=== PATIENT | male | born 1955 | race Caucasian/White ===

== ENCOUNTER 2016-10-04 16:35 | Emergency (ER) | payer SELFPAY ==
[~2016-10-04] VITALS: Ht 180.3 cm; Wt 82.0 kg
[~2016-10-04 16:35] MED LIST: B12-1CHW CHEW; DILA100C PO; LYSI1000 PO; PERC10TA27 PO
[2016-10-04 16:53] VITALS: BP 147/83; PULSE 79; RESP 19; TEMP 98.9; O2SAT 96
[2016-10-04] MEDS ORDERED: PRIL20CA9 PO (17:01)
[2016-10-04] MEDS ORDERED: ZANT150T2 PO (17:01)
--- NOTE | 2016-10-04 17:05 | PD ---
HPI Chief Complaint: Abdominal Pain Time Seen by Provider: 17:05 Travel History International Travel<30 days: No Contact w/Intl Traveler<30days: No Traveled to known affect area: No History of Present Illness HPI 61 year old male with PMH of depression, substance abuse, kidney stones, diverticulitis presents to the ED for evaluation of 1 week history of LLQ pain, nausea, vomiting. Patient endorses chills, has not measured a temperature at home. He endorses a single episode of bilious vomiting today. He endorses early satiety. Denies anorexia, diarrhea, constipation, melena, hematochezia. States this pain is unlike previous episodes of diverticulitis or kidney stones. No treatment attempted at home. Patient has never has a colonoscopy or endoscopy. PFSH Past Medical History Blood Disorders: No Anxiety: No Depression: No Cancer: No Cardiovascular Problems: No Chemotherapy: No Cerebrovascular Accident: No Diabetes: No Diminished Hearing: No Diverticulitis: Yes Endocrine: No Gastrointestinal Disorders: Yes GERD: Yes Genitourinary: Yes Immune Disorder: No Inguinal Hernia: Yes Implanted Vascular Access Dvce: No Kidney Stones: Yes Musculoskeletal: No Neurologic: Yes Psychiatric: No Reproductive: No Respiratory: No Immunizations Current: No Migraines: Yes Radiation Therapy: No Renal Failure: No Seizures: Yes (non compliant) Shingles: Yes (2014) Sickle Cell Disease: No Thyroid Disease: No Past Surgical History Abdominal Surgery: Yes (RIGHT INGUINAL HERNIA SX) AICD: No Arteriovenous Shunt: No Cardiac Surgery: No Ear Surgery: No Endocrine Surgery: No Eye Surgery: No Genitourinary Surgery: Yes (LITHOTRIPSY 2009) Gynecologic Surgery: No Insulin Pump: No Joint Replacement: No Oral Surgery: No Pacemaker: No Thoracic Surgery: No Tonsillectomy: Yes Other Surgery: Yes (right leg fracture, lithotripsy) Social History Alcohol Use: No Tobacco Use: No Substance Use: Yes (marijuana, 3 days ago last use) Allergies-Medications (Allergen,Severity, Reaction): Coded Allergies: Ketorolac (Verified Allergy, Severe, NUTTY, 12/05/14) Stadol (Verified Allergy, Severe, BLEEDING FROM KIDNEYS, 12/05/14) Reported Meds & Prescriptions Reported Meds & Active Scripts Active Percocet (Oxycodone-Acetaminophen) 7.5-325 mg Tab 1 Tab PO Q6H PRN Cipro (Ciprofloxacin HCl) 500 Mg Tab 500 Mg PO BID 10 Days Zofran Odt (Ondansetron Odt) 4 Mg Tab 4 Mg SL Q12HR PRN Reported Zantac (Ranitidine HCl) 150 Mg Tab 150 Mg PO BID Prilosec (Omeprazole) 20 Mg Cap 20 PO DAILY Review of Systems Except as stated in HPI: all other systems reviewed are Neg Physical Exam Narrative GENERAL: Well-nourished, well-developed nontoxic appearing white male in no acute distress. Lying on the stretcher, moaning as I enter the room. SKIN: Focused skin assessment warm/dry. HEAD: Normocephalic. EYES: No scleral icterus. No injection or drainage. NECK: Supple, trachea midline. No JVD or lymphadenopathy. CARDIOVASCULAR: Regular rate and rhythm without murmurs, gallops, or rubs. 2+ DP and radial pulses bilaterally. RESPIRATORY: Breath sounds clear and equal bilaterally. No accessory muscle use. GASTROINTESTINAL: Abdomen soft, nondistended, no palpable masses.++ Left lower quadrant tenderness. Active bowel sounds. MUSCULOSKELETAL: No cyanosis, or edema. BACK: Nontender without obvious deformity. ++ Left-sided CVA tenderness. Data Data Last Documented VS Vital Signs Date Time Temp Pulse Resp B/P Pulse Ox O2 Delivery O2 Flow Rate FiO2 10/04/16 20:24 87 158/88 98 10/04/16 18:32 18 10/04/16 18:30 Room Air 10/04/16 16:53 98.9 Orders Complete Blood Count With Diff (10/04/16 17:17) Comprehensive Metabolic Panel (10/04/16 17:17) Lipase (10/04/16 17:17) Lactic Acid (10/04/16 17:17) Prothrombin Time / Inr (Pt) (10/04/16 17:17) Act Partial Throm Time (Ptt) (10/04/16 17:17) Urinalysis - C+S If Indicated (10/04/16 17:17) Iv Access Insert/Monitor (10/04/16 17:17) Ecg Monitoring (10/04/16 17:17) Oximetry (10/04/16 17:17) Ondansetron Inj (Zofran Inj) (10/04/16 17:30) Sodium Chlor 0.9% 1000 Ml Inj (Ns 1000 M (10/04/16 17:17) Sodium Chloride 0.9% Flush (Ns Flush) (10/04/16 17:30) Hydromorphone Pf Inj (Dilaudid Pf Inj) (10/04/16 17:30) Ct Abd/Pel W/O Iv Contrast (10/04/16 ) Morphine Inj (Morphine Inj) (10/04/16 19:30) Sodium Chlor 0.9% 1000 Ml Inj (Ns 1000 M (10/04/16 19:30) Mandatory Outpatient Referral (10/04/16 19:43) Labs Laboratory Tests Test 10/04/16 10/04/16 17:20 18:25 White Blood Count 15.4 TH/MM3 Red Blood Count 5.54 MIL/MM3 Hemoglobin 17.1 GM/DL Hematocrit 50.0 % Mean Corpuscular Volume 90.2 FL Mean Corpuscular Hemoglobin 30.9 PG Mean Corpuscular Hemoglobin 34.2 % Concent Red Cell Distribution Width 14.2 % Platelet Count 268 TH/MM3 Mean Platelet Volume 7.0 FL Neutrophils (%) (Auto) 71.6 % Lymphocytes (%) (Auto) 15.9 % Monocytes (%) (Auto) 12.1 % Eosinophils (%) (Auto) 0.0 % Basophils (%) (Auto) 0.4 % Neutrophils # (Auto) 11.0 TH/MM3 Lymphocytes # (Auto) 2.4 TH/MM3 Monocytes # (Auto) 1.9 TH/MM3 Eosinophils # (Auto) 0.0 TH/MM3 Basophils # (Auto) 0.1 TH/MM3 CBC Comment DIFF FINAL Differential Comment Prothrombin Time 11.0 SEC Prothromb Time International 1.0 RATIO Ratio Activated Partial 22.3 SEC Thromboplast Time Sodium Level 134 MEQ/L Potassium Level 3.6 MEQ/L Chloride Level 100 MEQ/L Carbon Dioxide Level 23.0 MEQ/L Anion Gap 11 MEQ/L Blood Urea Nitrogen 21 MG/DL Creatinine 0.91 MG/DL Estimat Glomerular Filtration 85 ML/MIN Rate Random Glucose 117 MG/DL Lactic Acid Level 1.4 mmol/L Calcium Level 9.3 MG/DL Total Bilirubin 1.3 MG/DL Aspartate Amino Transf 14 U/L (AST/SGOT) Alanine Aminotransferase 11 U/L (ALT/SGPT) Alkaline Phosphatase 50 U/L Total Protein 8.1 GM/DL Albumin 4.2 GM/DL Lipase 192 U/L Urine Color LIGHT-ORANGE Urine Turbidity CLEAR Urine pH 5.5 Urine Specific [place] 1.050 Urine Protein 30 mg/dL Urine Glucose (UA) TRACE mg/dL Urine Ketones 40 mg/dL Urine Occult Blood NEG Urine Nitrite NEG Urine Bilirubin NEG Urine Urobilinogen 2.0 MG/DL Urine Leukocyte Esterase NEG Urine RBC 1 /hpf Urine WBC 4 /hpf Urine Mucus MANY /lpf Microscopic Urinalysis Comment CULT NOT INDICATED MDM Medical Decision Making Medical Screen Exam Complete: Yes Emergency Medical Condition: Yes Medical Record Reviewed: Yes Differential Diagnosis Diverticulitis versus nephroureterolithiasis versus pyelonephritis versus bowel obstruction versus pancreatitis versus colitis versus gastroenteritis versus other Narrative Course 61 year old male with PMH of depression, substance abuse, kidney stones, diverticulitis presents to the ED for evaluation of 1 week history of LLQ pain, nausea, vomiting. Patient endorses chills, has not measured a temperature at home. He endorses a single episode of bilious vomiting today. He endorses early satiety. Denies anorexia, diarrhea, constipation, melena, hematochezia. States this pain is unlike previous episodes of diverticulitis or kidney stones. Patient has never has a colonoscopy or endoscopy. Vitals reviewed. Physical exam reveals a nontoxic appearing white male in no acute distress. Abdomen mildly TTP in the LLQ. + left CVA TTP, otherwise unremarkable. IV was established. Placement was placed on continuous monitoring. He was administered half milligram Dilaudid, 4 mg Zofran and 1 L normal saline bolus IV. CBC: WBC 15.4, 71.6% neutrophils. INR: 1.0. CMP: BUN 21, Cr 2.1. Bilirubin 1.3 Lactic acid: 1.4 UA: No culture indicated. CT abdomen and pelvis: No change from CT of 10/03/15. There are renal stones and mild dilatation of the left collecting system. Densely calcified gallbladder. Large hiatal hernia. During the course of evaluation the patient became belligerent and abusive to the staff. He is repeatedly yelling out for pain medication. He was administered 6mg morphine and a 2nd fluid bolus. The source of the patient's left lower quadrant abdominal pain is unclear. Review of the record reveals similar pain complaint in September of last year. At this point I think treating for an early colitis and outpatient follow-up with the shop mechanic is reasonable. I discussed results of the workup with the patient. I discussed the symptoms of hiatal hernia. I prescribed a short course of Cipro, pain medications and Zofran. I informed the patient of the mandatory outpatient referral process and encouraged him to follow up on an outpatient basis as discussed. He apologized for his earlier abusive behavior, stating that his pain was better controlled now. He indicated understanding of the discharge instructions and is agreeable to the care plan. This patient is stable and discharged home. Diagnosis Primary Impression: Left lower quadrant abdominal pain of unknown etiology Referrals: Lyntete Herrera MD Patient Instructions: Abdominal Pain (ED), Diet for Stomach Ulcers and Gastritis (GEN), General Instructions Additional Instructions: Rest, hydrate. Take Atarax as prescribed, even if her symptoms resolve. Pain medications as prescribed. Zofran as needed for nausea and vomiting. Do not drive while taking pain medications. Mandatory outpatient consult has been placed on your behalf with the shop mechanic. You can expect the hospital to contact you within a week with instructions for follow-up. Follow-up with the shop mechanic as discussed. Return to the ED for any urgent or emergent medical condition. Med/Other Pt SpecificInfo: Prescription(s) given Scripts Oxycodone-Acetaminophen (Percocet)7.5-325 mg Tab1 Tab PO Q6H PRN (PAIN) #15 TAB Ref 0 Prov:Yaya Cole MD 10/04/16 Ciprofloxacin (Cipro)500 Mg [id number] Mg PO BID 10 Days Ref 0 Prov:Rajinder Hui MD 10/04/16 Ondansetron Odt (Zofran Odt)4 Mg Tab4 Mg SL Q12HR PRN (Nausea/Vomiting) #5 TAB Ref 0 Prov:Rajinder Hui MD 10/04/16 Disposition: 01 DISCHARGE HOME Condition: Stable Kaylan Miller Oct 04, 2016 17:05
[2016-10-04] MEDS ORDERED: SODIUM CHLOR 0.9% 1000 ML INJ 1,000 ML IV SCH (17:17)
[2016-10-04] MEDS ORDERED: SODIUM CHLORIDE 0.9% FLUSH 10 ML FLUSH IV FLUSH PRN (17:30)
[2016-10-04] MEDS ORDERED: ONDANSETRON HCL 4 MG/2 ML VIAL IVP ONE (17:30)
[2016-10-04] MEDS ORDERED: HYDROmorphone HCL PF 1 MG/ML VIAL IV PUSH ONE (17:30)
--- NOTE | 2016-10-04 18:20 | RADRPT ---
EXAM DATE/TIME: 10/04/2016 17:50 [facility] COMPARISON: CT ABDOMEN & PELVIS W/O CONTRAST, October 02, 2014, 20:40. INDICATIONS : Abdominal pain left sided. ORAL CONTRAST: No oral contrast ingested. RADIATION DOSE: 8.68 CTDIvol (mGy) MEDICAL HISTORY : Diverticulitis. SURGICAL HISTORY : Inguinal hernia repair. Lithotripsy ENCOUNTER: Initial ACUITY: 1 week PAIN SCALE: 6/10 LOCATION: Left lower quadrant TECHNIQUE: Volumetric scanning of the abdomen and pelvis was performed. Using automated exposure control and adjustment of the mA and/or kV according to patient size, radiation dose was kept as low as reasonably achievable to obtain optimal diagnostic quality images. FINDINGS: There is radiopaque foreign material in the left lung base. The right lung is clear. A gain seen is a densely calcified gallbladder. The liver is free of focal defects. Large hiatal aldair ia is noted. Spleen, pancreas and adrenal glands are unremarkable. The right kidney is unremarkable. Multiple calcifications are seen in the left kidney. There is mild dilatation of the left collecting system with no calcification along the expected course of either ureter. The pelvis, multiple phleboliths and diverticula are present in the pelvis. There is a small umbilical hernia containing only fat. Review of bone windows reveals degenerative changes in the lumbar spine and left hip. CONCLUSION: 1. No interval change when compared to 10/02/2014. There are renal stones in the left collecting syst em with mild dilatation of the left collecting system. 2. Densely calcified gallbladder. 3. Large hiatal hernia. Junior Jovel MD FACR on October 04, 2016 at 18:10 Board Certified Radiologist. This report was verified electronically.
[2016-10-04 18:23] LABS: BASOPHIL # 0.1 TH/MM3 (0-0.2); BASOPHIL % 0.4 % (0.0-2.0); HEMO FLAGS DIFF FINAL; LYMPH % 15.9 % (9.0-44.0); LYMPHOCYTE # 2.4 TH/MM3 (1.0-4.8); MEAN CELL VOLUME 90.2 FL (80.0-100.0); MEAN CORPUSCULAR HEMOGLOBIN 30.9 PG (27.0-34.0); MEAN CORPUSCULAR HGB CONC 34.2 % (32.0-36.0); MONO % 12.1 % (0.0-8.0); NEUT % 71.6 % (16.0-70.0); PLATELET COUNT 268 TH/MM3 (150-450); RED BLOOD COUNT 5.54 MIL/MM3 (4.50-5.90); RED CELL DISTRIBUTION WIDTH 14.2 % (11.6-17.2); WHITE BLOOD COUNT 15.4 TH/MM3 (4.0-11.0)
[2016-10-04 18:29] LABS: APTT (PATIENT) 22.3 SEC (24.3-30.1)
[2016-10-04 18:30] VITALS: BP 160/73; PULSE 57; RESP 18; O2SAT 100; O2SAT 99
[2016-10-04 18:32] VITALS: RESP 18
[2016-10-04 18:51] LABS: BLOOD, URINE NEG (NEG); COMMENT (UR) CULT NOT INDICATED; CULTURE IF INDICATED CULT NOT INDICATED; GLUCOSE,URINE TRACE mg/dL (NEG); KETONE, URINE 40 mg/dL (NEG); MUCUS URINE MANY /lpf (OCC); NITRITE,URINE NEG (NEG); PH, URINE 5.5 (5.0-8.5)
[2016-10-04 18:57] LABS: ALKALINE PHOSPHATASE 50 U/L (45-117); ALT (GPT) 11 U/L (12-78); ANION GAP 11 MEQ/L (5-15); AST (GOT) 14 U/L (15-37); BLOOD UREA NITROGEN 21 MG/DL (7-18); CHLORIDE 100 MEQ/L (98-107); GLOMERULAR FILTRATION RATE 85 ML/MIN (>89); SODIUM (NA) 134 MEQ/L (136-145); TOTAL BILIRUBIN ADULT 1.3 MG/DL (0.2-1.0)
[2016-10-04 18:58] LABS: URINE COLOR LIGHT-ORANGE (YELLW/STRAW)
[2016-10-04 18:58] LABS: POTASSIUM 3.6 MEQ/L (3.5-5.1)
[2016-10-04] MEDS ORDERED: SODIUM CHLOR 0.9% 1000 ML INJ 1,000 ML IV ONE (19:30)
[2016-10-04] MEDS ORDERED: MORPHINE SULFATE 4 MG/ML INJ IV PUSH ONE (19:30)
[2016-10-04] MEDS ORDERED: PERC7.5T13 PO (19:49)
[2016-10-04] MEDS ORDERED: ZOFR4TAB3 SL (19:49)
[2016-10-04] MEDS ORDERED: CIPR-9 PO (19:49)
[2016-10-04 20:24] VITALS: BP 158/88
== END 2016-10-04 20:25 | disposition home or self-care (01) ==
LOC: NEPE 16:35
DX: R10.32 Left lower quadrant pain (principal); K44.9 Diaphragmatic hernia without obstruction or gangrene; K82.8 Other specified diseases of gallbladder; R68.81 Early satiety
CPT/HCPCS: 74176; 80053; 81001; 83605; 83690; 85025; 85610; 85730; 96361; 96374; 96375; 99284; J1170; J2270; J2405; J7030

== ENCOUNTER 2016-11-05 10:48 | Emergency (ER) | payer SELFPAY ==
[~2016-11-05] VITALS: Ht 180.3 cm; Wt 80.0 kg
[~2016-11-05 10:48] MED LIST changes: -B12-1CHW CHEW; +CIPR-9 PO; -DILA100C PO; -LYSI1000 PO; -PERC10TA27 PO; +PERC7.5T13 PO; +PRIL20CA9 PO; +ZANT150T2 PO; +ZOFR4TAB3 SL
[2016-11-05 10:55] VITALS: BP 194/99; PULSE 57; RESP 18; O2SAT 99
--- NOTE | 2016-11-05 11:05 | PD ---
HPI Chief Complaint: abdominal pain Time Seen by Provider: 11:03 Travel History International Travel<30 days: No Contact w/Intl Traveler<30days: No History of Present Illness HPI 61 year old male with PMH of depression, kidney stones, substance abuse, diverticulosis, hiatal hernia, noncompliance presents to the ED for evaluation of 5 hour history of left lower quadrant abdominal pain. Gradual onset, accompanied by bolus vomiting. Patient denies fever or chills. He states that he has been able to eat and drink normally up until 5 hours ago. Denies changes in bowel habits, dysuria. He was seen earlier this year with similar complaint and instructed to seek outpatient GI evaluation. Patient has been noncompliant with that recommendation. PFSH Past Medical History Blood Disorders: No Anxiety: No Depression: No Cancer: No Cardiovascular Problems: No Chemotherapy: No Cerebrovascular Accident: No Diabetes: No Diminished Hearing: No Diverticulitis: Yes Endocrine: No Gastrointestinal Disorders: Yes GERD: Yes Genitourinary: Yes Immune Disorder: No Inguinal Hernia: Yes Implanted Vascular Access Dvce: No Kidney Stones: Yes Musculoskeletal: No Neurologic: Yes Psychiatric: No Reproductive: No Respiratory: No Immunizations Current: No Migraines: Yes Radiation Therapy: No Renal Failure: No Seizures: Yes (non compliant) Shingles: Yes (2014) Sickle Cell Disease: No Thyroid Disease: No Past Surgical History Abdominal Surgery: Yes (RIGHT INGUINAL HERNIA SX) AICD: No Arteriovenous Shunt: No Cardiac Surgery: No Ear Surgery: No Endocrine Surgery: No Eye Surgery: No Genitourinary Surgery: Yes (LITHOTRIPSY 2009) Gynecologic Surgery: No Insulin Pump: No Joint Replacement: No Oral Surgery: No Pacemaker: No Thoracic Surgery: No Tonsillectomy: Yes Other Surgery: Yes (right leg fracture, lithotripsy) Social History Alcohol Use: No Tobacco Use: No Substance Use: Yes (marijuana, 3 days ago last use) Allergies-Medications (Allergen,Severity, Reaction): Coded Allergies: Ketorolac (Verified Allergy, Severe, NUTTY, 12/05/14) Stadol (Verified Allergy, Severe, BLEEDING FROM KIDNEYS, 12/05/14) Reported Meds & Prescriptions Reported Meds & Active Scripts Active Zofran Odt (Ondansetron Odt) 4 Mg Tab 4 Mg SL Q12HR PRN Cipro (Ciprofloxacin HCl) 500 Mg Tab 500 Mg PO BID 10 Days Percocet (Oxycodone-Acetaminophen) 7.5-325 mg Tab 1 Tab PO Q6H PRN Reported Tylenol (Acetaminophen) 325 Mg Tab 650 Mg PO Q4H PRN Zantac (Ranitidine HCl) 150 Mg Tab 150 Mg PO BID Prilosec (Omeprazole) 20 Mg Cap 20 PO DAILY Review of Systems Except as stated in HPI: all other systems reviewed are Neg Physical Exam Narrative GENERAL: Well-nourished, well-developed white male, sitting up on the end of the stretcher, moaning, retching, in no acute distress. SKIN: Focused skin assessment warm/diaphoretic. HEAD: Normocephalic. EYES: No scleral icterus. No injection or drainage. Pupils 4-5mm and reactive bilaterally NECK: Supple, trachea midline. No JVD or lymphadenopathy. CARDIOVASCULAR: Regular rate and rhythm without murmurs, gallops, or rubs. RESPIRATORY: Breath sounds clear and equal bilaterally. No accessory muscle use. GASTROINTESTINAL: Abdomen soft, non-tender, nondistended. Negative [place] sign. No palpable masses. No hepatosplenomegaly. MUSCULOSKELETAL: No cyanosis, or edema. The patient is ambulatory and moves the extremities spontaneously. BACK: Nontender without obvious deformity. No CVA tenderness. Data Data Last Documented VS Vital Signs Date Time Temp Pulse Resp B/P Pulse Ox O2 Delivery O2 Flow Rate FiO2 11/05/16 12:23 18 11/05/16 11:44 98 Room Air 11/05/16 10:55 57 194/99 Orders Complete Blood Count With Diff (11/05/16 11:10) Comprehensive Metabolic Panel (11/05/16 11:10) Lipase (11/05/16 11:10) Lactic Acid (11/05/16 11:10) Urinalysis - C+S If Indicated (11/05/16 11:10) Ct Abd/Pel W Iv Contrast(Rout) (11/05/16 11:10) Iv Access Insert/Monitor (11/05/16 11:10) Ecg Monitoring (11/05/16 11:10) Oximetry (11/05/16 11:10) NPO (11/05/16 11:10) Hydromorphone Pf Inj (Dilaudid Pf Inj) (11/05/16 11:15) Ondansetron Inj (Zofran Inj) (11/05/16 11:15) Sodium Chlor 0.9% 1000 Ml Inj (Ns 1000 M (11/05/16 11:10) Sodium Chloride 0.9% Flush (Ns Flush) (11/05/16 11:15) Iohexol 350 Inj (Omnipaque 350 Inj) (11/05/16 12:55) Morphine Inj (Morphine Inj) (11/05/16 13:00) Ondansetron Inj (Zofran Inj) (11/05/16 13:15) Mandatory Outpatient Referral (11/05/16 13:53) Oxycodone-Acetamin 5-325 Mg (Percocet (11/05/16 14:00) Labs Laboratory Tests Test 11/05/16 11/05/16 11:35 13:08 White Blood Count 11.7 TH/MM3 Red Blood Count 5.61 MIL/MM3 Hemoglobin 17.6 GM/DL Hematocrit 51.3 % Mean Corpuscular Volume 91.4 FL Mean Corpuscular Hemoglobin 31.3 PG Mean Corpuscular Hemoglobin 34.2 % Concent Red Cell Distribution Width 14.9 % Platelet Count 284 TH/MM3 Mean Platelet Volume 7.0 FL Neutrophils (%) (Auto) 81.4 % Lymphocytes (%) (Auto) 12.2 % Monocytes (%) (Auto) 5.5 % Eosinophils (%) (Auto) 0.2 % Basophils (%) (Auto) 0.7 % Neutrophils # (Auto) 9.5 TH/MM3 Lymphocytes # (Auto) 1.4 TH/MM3 Monocytes # (Auto) 0.6 TH/MM3 Eosinophils # (Auto) 0.0 TH/MM3 Basophils # (Auto) 0.1 TH/MM3 CBC Comment DIFF FINAL Differential Comment Sodium Level 135 MEQ/L Potassium Level 4.7 MEQ/L Chloride Level 101 MEQ/L Carbon Dioxide Level 22.6 MEQ/L Anion Gap 11 MEQ/L Blood Urea Nitrogen 13 MG/DL Creatinine 0.85 MG/DL Estimat Glomerular Filtration 92 ML/MIN Rate Random Glucose 147 MG/DL Lactic Acid Level 2.4 mmol/L Calcium Level 9.6 MG/DL Total Bilirubin 0.9 MG/DL Aspartate Amino Transf 23 U/L (AST/SGOT) Alanine Aminotransferase 16 U/L (ALT/SGPT) Alkaline Phosphatase 61 U/L Total Protein 8.3 GM/DL Albumin 4.3 GM/DL Lipase 169 U/L Urine Color YELLOW Urine Turbidity CLEAR Urine pH 7.0 Urine Specific [place] 1.037 Urine Protein TRACE mg/dL Urine Glucose (UA) NEG mg/dL Urine Ketones 40 mg/dL Urine Occult Blood TRACE Urine Nitrite NEG Urine Bilirubin NEG Urine Urobilinogen LESS THAN 2.0 MG/DL Urine Leukocyte Esterase NEG Urine RBC 7 /hpf Urine WBC 3 /hpf Urine Hyaline Casts 3 /lpf Urine Mucus FEW /lpf Microscopic Urinalysis Comment CULT NOT INDICATED MDM Medical Decision Making Medical Screen Exam Complete: Yes Emergency Medical Condition: Yes Differential Diagnosis diverticulitis versus colitis versus nephroureterolithiasis versus inguinal hernia versus drug seeking behavior versus noncompliance versus other Narrative Course 61 year old male with PMH of depression, kidney stones, substance abuse, diverticulosis, hiatal hernia, noncompliance presents to the ED via EMS for evaluation of 5 hour history of left lower quadrant abdominal pain. Gradual onset, accompanied by bilious vomiting. Patient denies fever or chills. He states that he has been able to eat and drink normally up until 5 hours ago. Denies changes in bowel habits, dysuria. He was seen earlier this year with similar complaint, has not followed up. Vitals reviewed. Physical exam reveals an nontoxic appearing white male, moaning, retching, in no acute distress. Abdomen soft, non-tender, nondistended. Negative [place] sign. No palpable masses. No hepatosplenomegaly. No CVA tenderness. IV was established. Patient was placed on continuous monitoring. He was administered a liter of fluids, 1 mg Dilaudid, 4 mg Zofran IV. CBC: WBC 11.7, hemoglobin 17.6. CMP: Unremarkable Lactic acid 2.4 UA: No culture indicated. CT abdomen: Mild colitis. Diverticulosis without active inflammation. Left renal calculus with mild lower polar distention. Calcified gallbladder, unchanged. Steatosis. I treated this patient in the past and the results of the workup were very similar. At that time he told me he had been taking Percocet that was given to him by a friend. Today he endorses taking "an old prescription" of pain medications in the interim since I saw him last. I'm highly suspicious of drug- seeking behavior in this patient. During the course of evaluation the patient began to retch and complain of pain and was administered an additional 2 mg of morphine and 4 mg of Zofran. I discussed the results of the workup with the patient. I stressed the importance of outpatient follow-up with the attending physician. Mandatory consult place with on-call GI, Dr. Haji. Patient still complaining of pain and was offered a 5 mg Percocet, which he declined. She was prescribed a short course of Cipro, Zofran and narcotic pain medications. Upon discharge the patient became very irate, stating that he was in pain and he was going to go to another hospital. I again stressed the importance of outpatient follow-up considering his level of pain. The patient is stable and discharged home. Diagnosis Primary Impression: Colitis Additional Impressions: Renal calculus, left Noncompliance Referrals: Ivy Haji MD, J. Peter MD Patient Instructions: Colitis (ED), Diet for Stomach Ulcers and Gastritis (ED) , General Instructions, Kidney Stones (ED) Additional Instructions: Rest, hydrate. Take antibiotics as prescribed. Take pain medications as prescribed. Follow up with Dr. Haji (gastroenterology) and Dr. Hernandez (nephrology.) Return to the ED for any urgent or emergent medical condition. Med/Other Pt SpecificInfo: Prescription(s) given Scripts Ondansetron Odt (Zofran Odt)4 Mg Tab4 Mg SL Q12HR PRN (Nausea/Vomiting) #5 TAB Ref 0 Prov:Rajinder Hui MD 11/05/16 Ciprofloxacin (Cipro)500 Mg [id number] Mg PO BID 10 Days Ref 0 Prov:Rajinder Hui MD 11/05/16 Oxycodone-Acetaminophen (Percocet)7.5-325 mg Tab1 Tab PO Q6H PRN (PAIN) #15 TAB Ref 0 Prov:Rajinder uHi MD 11/05/16 Disposition: 01 DISCHARGE HOME Condition: Stable Kaylan Miller November 05, 2016 11:05
[2016-11-05] MEDS ORDERED: SODIUM CHLOR 0.9% 1000 ML INJ 1,000 ML IV SCH (11:10)
[2016-11-05] MEDS ORDERED: HYDROmorphone HCL PF 2 MG/ML VIAL IVS ONE (11:15)
[2016-11-05] MEDS ORDERED: SODIUM CHLORIDE 0.9% FLUSH 10 ML FLUSH IV FLUSH PRN (11:15)
[2016-11-05] MEDS ORDERED: ONDANSETRON HCL 4 MG/2 ML VIAL IVP ONE (11:15)
[2016-11-05 11:44] VITALS: RESP 18; O2SAT 98
[2016-11-05 11:45] LABS: AUTOMATED NEUTROPHIL # 9.5 TH/MM3 (1.8-7.7); BASOPHIL # 0.1 TH/MM3 (0-0.2); BASOPHIL % 0.7 % (0.0-2.0); EOSINOPHIL % 0.2 % (0.0-4.0); HEMATOCRIT 51.3 % (39.0-51.0); HEMO FLAGS DIFF FINAL; LYMPH % 12.2 % (9.0-44.0); LYMPHOCYTE # 1.4 TH/MM3 (1.0-4.8); MEAN CELL VOLUME 91.4 FL (80.0-100.0); MEAN CORPUSCULAR HEMOGLOBIN 31.3 PG (27.0-34.0); MEAN CORPUSCULAR HGB CONC 34.2 % (32.0-36.0); MONO % 5.5 % (0.0-8.0); NEUT % 81.4 % (16.0-70.0); PLATELET COUNT 284 TH/MM3 (150-450); RED BLOOD COUNT 5.61 MIL/MM3 (4.50-5.90); RED CELL DISTRIBUTION WIDTH 14.9 % (11.6-17.2); WHITE BLOOD COUNT 11.7 TH/MM3 (4.0-11.0)
[2016-11-05 12:06] LABS: ALKALINE PHOSPHATASE 61 U/L (45-117); ALT (GPT) 16 U/L (12-78); TOTAL BILIRUBIN ADULT 0.9 MG/DL (0.2-1.0)
[2016-11-05] MEDS ORDERED: TYLE325T PO (12:10)
[2016-11-05 12:11] LABS: ANION GAP 11 MEQ/L (5-15); BICARBONATE 22.6 MEQ/L (21.0-32.0); BLOOD UREA NITROGEN 13 MG/DL (7-18); CHLORIDE 101 MEQ/L (98-107); GLOMERULAR FILTRATION RATE 92 ML/MIN (>89); SODIUM (NA) 135 MEQ/L (136-145)
[2016-11-05 12:12] LABS: AST (GOT) 23 U/L (15-37); POTASSIUM 4.7 MEQ/L (3.5-5.1)
[2016-11-05 12:23] VITALS: RESP 18
[2016-11-05] MEDS ORDERED: IOHEXOL 350 MG/ML 10 ML VIAL (for RAD DIAG) IV ONE (12:55)
[2016-11-05] MEDS ORDERED: MORPHINE SULFATE 4 MG/ML INJ IV PUSH ONE (13:00)
[2016-11-05] MEDS ORDERED: ONDANSETRON HCL 4 MG/2 ML VIAL IV PUSH ONE (13:15)
[2016-11-05 13:32] LABS: BLOOD, URINE TRACE (NEG); COMMENT (UR) CULT NOT INDICATED; CULTURE IF INDICATED CULT NOT INDICATED; GLUCOSE,URINE NEG (NEG); HYALINE CAST, URINE 3 /lpf (RARE); KETONE, URINE 40 mg/dL (NEG); MUCUS URINE FEW /lpf (OCC); NITRITE,URINE NEG (NEG); URINE COLOR YELLOW (YELLW/STRAW)
--- NOTE | 2016-11-05 13:40 | RADRPT ---
EXAM DATE/TIME: 11/05/2016 12:44 [facility] COMPARISON: CT ABDOMEN & PELVIS W CONTRAST, May 12, 2016, 17:02. INDICATIONS : Left lower quadrant pain. IV CONTRAST: 70 cc Omnipaque 350 (iohexol) IV ORAL CONTRAST: No oral contrast ingested. RADIATION DOSE: 9.96 CTDIvol (mGy) MEDICAL HISTORY : Renal calculi. Seizures. Hernia, umbilical. SURGICAL HISTORY : Umbilical hernia repair. Lithotripsy. ENCOUNTER: Initial ACUITY: 2 weeks PAIN SCALE: 6/10 LOCATION: Left flank TECHNIQUE: Volumetric scanning of the abdomen and pelvis was performed. Using automated exposure control and ad justment of the mA and/or kV according to patient size, radiation dose was kept as low as reasonably achievable to obtain optimal diagnostic quality images. FINDINGS: LOWER LUNGS: The visualized lower lungs are clear. LIVER: The liver is diffusely hypodense. There are no focal space-occupying lesions or evidence of biliary d uct dilatation. Calcified gallbladder wall is again noted. SPLEEN: Normal size without lesion. PANCREAS: Within normal limits. KIDNEYS: Multiple renal calculi are again identified the lower pole of the left kidney. There is mild lower po le calyceal dilatation. The collecting systems otherwise nondistended. The right kidney is unremarkab le. ADRENAL GLANDS: Within normal limits. VASCULAR: There is no aortic aneurysm. BOWEL/MESENTERY: Small hiatal hernia is noted. The proximal transverse colon demonstrates mild wall thickening and muc osal stratification. Multiple diverticula are seen through the sigmoid colon. There are no active per icolonic inflammatory changes. There is no evidence of pathologic distention, abnormal fluid collecti ons or free air. ABDOMINAL WALL: Within normal limits. RETROPERITONEUM: There is no lymphadenopathy. BLADDER: No wall thickening or mass. REPRODUCTIVE: Within normal limits. INGUINAL: Soft tissue thickening is identified in the right inguinal canal. MUSCULOSKELETAL: Within normal limits for patient age. CONCLUSION: Mild mucosal thickening and wall edema involving the proximal transverse colon which may represent mi ld colitis. Sigmoid diverticulosis without evidence of active inflammation. Left renal calculi with mild lower pole calyceal distention. Calcified gallbladder; unchanged. Mildly hypodense liver characteristic of steatosis. Neri Vidal MD on November 05, 2016 at 13:19 Board Certified Radiologist. This report was verified electronically.
[2016-11-05] MEDS ORDERED: ZOFR4TAB3 SL (13:47)
[2016-11-05] MEDS ORDERED: CIPR-9 PO (13:47)
[2016-11-05] MEDS ORDERED: PERC7.5T13 PO (13:47)
[2016-11-05] MEDS ORDERED: oxyCODONE/ACETAMINOPHEN 5 MG/325 MG TAB PO ONE (14:00)
== END 2016-11-05 14:27 | disposition home or self-care (01) ==
LOC: NEPC 10:48
DX: K52.9 Noninfective gastroenteritis and colitis, unspecified (principal); N20.0 Calculus of kidney; Z91.19 Patient's noncompliance with other medical treatment and regimen; F12.90 Cannabis use, unspecified, uncomplicated
CPT/HCPCS: 74177; 80053; 81001; 83605; 83690; 85025; 96361; 96374; 96375; 96376; 99284; J1170; J2270; J2405; J7030; Q9967